=== PATIENT | male | born 1985 | race Caucasian/White ===

== ENCOUNTER 2024-11-10 12:02 | Inpatient (IN) | payer OTHER ==
[~2024-11-10] VITALS: Ht 170.2 cm; Wt 87.9 kg
[2024-11-10 14:50] VITALS: BP 108/72; PULSE 95; RESP 18; TEMP 98.4; O2SAT 100
[2024-11-10 20:00] VITALS: BP 113/81; PULSE 94; RESP 18; TEMP 98.8; O2SAT 96
[2024-11-10] MEDS: ATORVASTATIN CALCIUM 20 MG TABLET PO SCH (21:16)
[2024-11-11] MEDS: ETHYL ALCOHOL 62% ANTISEPTIC NASAL SANITIZER 0.6 ML AMPUL NASAL SCH (00:59)
[2024-11-11 05:08] VITALS: O2SAT 96
[2024-11-11 08:00] VITALS: BP 127/94; PULSE 88; RESP 18; TEMP 97.5; O2SAT 98
[2024-11-11 08:00] LABS: PLATELET COUNT (AUTO) 275 K/uL (150-450); RED BLOOD CELL COUNT(AUTO) 4.76 MIL/uL (4.50-5.90); RED CELL DISTRIBUTION WIDTH 21.5 % (11.5-14.5); WHITE BLOOD COUNT (AUTO) 12.1 K/uL (4.5-11.0)
[2024-11-11 08:16] LABS: ASPARTATE AMINOTRANSFERASE 20 U/L (15-37); CALCIUM, TOTAL 8.7 mg/dL (8.8-10.5); CREATININE 0.41 mg/dL (0.60-1.30); GLOMERULAR FILTR. RATE CALC > 60 mL/min (>60); GLUCOSE,RANDOM 88 mg/dL (70-110); SODIUM SERUM 136 mmol/L (136-145); TOTAL PROTEIN, SERUM 5.9 g/dL (6.4-8.2); UREA NITROGEN, BLOOD 20 mg/dL (7-18)
[2024-11-11] MEDS: POTASSIUM CHLORIDE 20 MEQ ER TABLET PO SCH (08:58)
[2024-11-11] MEDS: ASPIRIN 81 MG CHEWABLE TABLET PO SCH (08:58)
[2024-11-11] MEDS: LANSOPRAZOLE 15 MG SOLUBLE TABLET PO SCH (08:58)
[2024-11-11] MEDS ORDERED: EZETIMIBE 10 MG TABLET PO SCH (09:00)
[2024-11-11] MEDS ORDERED: POTASSIUM CHLORIDE 20 MEQ ER TABLET PO SCH (12:45)
[2024-11-11 20:00] VITALS: BP 112/78; PULSE 99; RESP 18; TEMP 97.7; O2SAT 97
[2024-11-11] MEDS: SODIUM CHLORIDE 1 GM TABLET PO SCH (20:29)
[2024-11-11] MEDS: EZETIMIBE 10 MG TABLET PO SCH (20:32)
[2024-11-12 08:00] VITALS: BP 131/94; PULSE 80; RESP 18; TEMP 97.8; O2SAT 99
[2024-11-12] MEDS: SULFAMETHOX/TRIMETH DS 800-160 MG/TABLET PO SCH (08:29)
[2024-11-12] MEDS: ENOXAPARIN SODIUM 30 MG/0.3 ML PF SYRINGE SQ SCH (10:09)
[2024-11-12] MEDS: ACETAMINOPHEN 325 MG TABLET PO PRN (10:09)
[2024-11-12] MEDS: POTASSIUM CHLORIDE 20 MEQ ER TABLET PO ONE (11:06)
[2024-11-12 20:02] VITALS: BP 110/68; PULSE 98; RESP 18; TEMP 98.2; O2SAT 96
[2024-11-12 22:55] VITALS: O2SAT 96
[2024-11-13 07:17] LABS: PLATELET COUNT (AUTO) 281 K/uL (150-450); RED BLOOD CELL COUNT(AUTO) 4.46 MIL/uL (4.50-5.90); RED CELL DISTRIBUTION WIDTH 20.8 % (11.5-14.5); WHITE BLOOD COUNT (AUTO) 10.6 K/uL (4.5-11.0)
[2024-11-13 07:33] LABS: CALCIUM, TOTAL 9.3 mg/dL (8.8-10.5); CREATININE 0.53 mg/dL (0.60-1.30); GLOMERULAR FILTR. RATE CALC > 60 mL/min (>60); GLUCOSE,RANDOM 85 mg/dL (70-110); SODIUM SERUM 140 mmol/L (136-145); UREA NITROGEN, BLOOD 11 mg/dL (7-18)
[2024-11-13 08:00] VITALS: BP 121/91; PULSE 94; RESP 19; TEMP 97.8; O2SAT 98
[2024-11-13] MEDS: POTASSIUM CHLORIDE 20 MEQ ER TABLET PO ONE (10:59)
[2024-11-13 20:03] VITALS: BP 112/79; PULSE 96; RESP 18; TEMP 98.8; O2SAT 97
[2024-11-13 22:26] VITALS: O2SAT 97
[2024-11-14 08:00] VITALS: BP 124/89; PULSE 81; RESP 19; TEMP 98.4; O2SAT 97
[2024-11-14] MEDS: POTASSIUM CHLORIDE 20 MEQ ER TABLET PO ONE (10:40)
[2024-11-14 17:46] LABS: GLUCOMETER DEV NAME(LOC) 2WR.1D; GLUCOSE,POINT OF CARE 226 MG/DL (70-110)
[2024-11-14 20:05] VITALS: BP 115/78; PULSE 98; RESP 18; TEMP 97.9; O2SAT 96; O2SAT 97
[2024-11-15 07:05] LABS: GLUCOMETER DEV NAME(LOC) 2WR.1D; GLUCOSE,POINT OF CARE 88 MG/DL (70-110)
[2024-11-15 08:00] VITALS: BP 118/93; PULSE 86; RESP 19; TEMP 97.9; O2SAT 97
[2024-11-15 08:41] LABS: CALCIUM, TOTAL 9.2 mg/dL (8.8-10.5); CREATININE 0.54 mg/dL (0.60-1.30); GLOMERULAR FILTR. RATE CALC > 60 mL/min (>60); GLUCOSE,RANDOM 77 mg/dL (70-110); SODIUM SERUM 141 mmol/L (136-145); UREA NITROGEN, BLOOD 14 mg/dL (7-18)
[2024-11-15] MEDS: MULTIVITAMINS WITH MINERALS, THERAPEUTIC TABLET PO SCH (08:42)
[2024-11-15 17:36] LABS: GLUCOMETER DEV NAME(LOC) 2WR.1D; GLUCOSE,POINT OF CARE 129 MG/DL (70-110)
[2024-11-15 20:02] VITALS: BP 123/74; PULSE 82; RESP 18; TEMP 98.2; O2SAT 95
[2024-11-15] MEDS: POTASSIUM CHLORIDE 20 MEQ ER TABLET PO SCH (20:09)
[2024-11-15] MEDS: SODIUM CHLORIDE 1 GM TABLET PO SCH (20:10)
[2024-11-15 21:50] VITALS: O2SAT 95
[2024-11-16] MEDS ORDERED: ATOR20TA PO (03:00)
[2024-11-16] MEDS ORDERED: ASPI-1450 PO (03:00)
[2024-11-16] MEDS ORDERED: EZET10TA57 PO (03:01)
[2024-11-16] MEDS ORDERED: ACET250T31 PO (03:01)
[2024-11-16] MEDS ORDERED: LANS-78 PO ×2 (03:03)
[2024-11-16] MEDS ORDERED: MULT-1303 PO (03:03)
[2024-11-16] MEDS ORDERED: LANS15TA13 PO (03:03)
[2024-11-16] MEDS ORDERED: POTA-206 PO (03:04)
[2024-11-16] MEDS ORDERED: SODI100067 PO (03:04)
[2024-11-16] MEDS ORDERED: SULF-261 PO (03:06)
[2024-11-16 07:41] LABS: GLUCOMETER DEV NAME(LOC) 2WR.1D; GLUCOSE,POINT OF CARE 83 MG/DL (70-110)
[2024-11-16 08:21] LABS: CALCIUM, TOTAL 8.9 mg/dL (8.8-10.5); CREATININE 0.58 mg/dL (0.60-1.30); GLOMERULAR FILTR. RATE CALC > 60 mL/min (>60); GLUCOSE,RANDOM 75 mg/dL (70-110); UREA NITROGEN, BLOOD 14 mg/dL (7-18)
[2024-11-16 08:34] VITALS: BP 125/89; PULSE 89; RESP 19; TEMP 97.4; O2SAT 98
[2024-11-16 08:38] LABS: SODIUM SERUM 139 mmol/L (136-145)
[2024-11-16 11:23] VITALS: O2SAT 98
[2024-11-16 20:00] VITALS: BP 127/94; PULSE 89; RESP 18; TEMP 98.2; O2SAT 98
[2024-11-17 07:10] LABS: GLUCOMETER DEV NAME(LOC) 2WR.1D; GLUCOSE,POINT OF CARE 82 MG/DL (70-110)
[2024-11-17 08:00] VITALS: BP 116/87; PULSE 85; RESP 18; TEMP 97.5; O2SAT 98
[2024-11-17 20:02] VITALS: BP 110/70; PULSE 90; RESP 18; TEMP 97.7; O2SAT 100
[2024-11-17 22:15] VITALS: O2SAT 100
[2024-11-18 08:00] VITALS: BP 117/85; PULSE 86; RESP 18; TEMP 98.4; O2SAT 98
[2024-11-18] MEDS: MELATONIN 5 MG TABLET PO PRN (21:01)
[2024-11-18 23:35] VITALS: BP 111/76; PULSE 95; RESP 17; TEMP 98.2; O2SAT 98
[2024-11-18 23:39] VITALS: O2SAT 98
[2024-11-19 08:00] VITALS: BP 119/88; PULSE 89; RESP 19; TEMP 97.7; O2SAT 97
[2024-11-19 20:00] VITALS: BP 107/76; PULSE 102; TEMP 98.1; O2SAT 96
[2024-11-19] MEDS: ETHYL ALCOHOL 62% ANTISEPTIC NASAL SANITIZER 0.6 ML AMPUL NASAL SCH (21:45)
[2024-11-20 08:00] VITALS: BP 123/85; PULSE 106; RESP 18; TEMP 98.4; O2SAT 95
[2024-11-20 16:37] VITALS: PULSE 92; O2SAT 98
[2024-11-20 20:00] VITALS: BP 123/87; PULSE 94; RESP 20; TEMP 97.7; O2SAT 97
[2024-11-21 07:41] VITALS: BP 113/88; PULSE 87; RESP 18; TEMP 97.7; O2SAT 98
[2024-11-21 10:49] VITALS: O2SAT 98
[2024-11-21 10:51] VITALS: PULSE 89; O2SAT 98
[2024-11-21 20:00] VITALS: BP 115/79; PULSE 96; RESP 18; TEMP 97.7; O2SAT 97
[2024-11-22 07:39] LABS: PLATELET COUNT (AUTO) 302 K/uL (150-450); RED BLOOD CELL COUNT(AUTO) 4.72 MIL/uL (4.50-5.90); RED CELL DISTRIBUTION WIDTH 20.4 % (11.5-14.5); WHITE BLOOD COUNT (AUTO) 12.0 K/uL (4.5-11.0)
[2024-11-22 08:00] VITALS: BP 117/91; PULSE 83; RESP 17; TEMP 98; O2SAT 97
[2024-11-22 08:17] LABS: CALCIUM, TOTAL 9.1 mg/dL (8.8-10.5); CREATININE 0.78 mg/dL (0.60-1.30); GLOMERULAR FILTR. RATE CALC > 60 mL/min (>60); GLUCOSE,RANDOM 77 mg/dL (70-110); SODIUM SERUM 137 mmol/L (136-145); UREA NITROGEN, BLOOD 20 mg/dL (7-18)
[2024-11-22 20:00] VITALS: BP 107/73; PULSE 83; RESP 18; TEMP 97.7; O2SAT 99
[2024-11-23 08:00] VITALS: BP 110/83; PULSE 83; RESP 19; TEMP 98.1; O2SAT 99
[2024-11-23 20:00] VITALS: BP 120/86; PULSE 88; RESP 20; TEMP 97.3; O2SAT 98
[2024-11-23 20:05] VITALS: O2SAT 98
[2024-11-24 08:00] VITALS: BP 122/91; PULSE 87; RESP 18; TEMP 97.5; O2SAT 99
[2024-11-24 20:00] VITALS: BP 108/81; PULSE 95; RESP 18; TEMP 98.1; O2SAT 96
[2024-11-25 08:00] VITALS: BP 120/90; PULSE 84; RESP 18; TEMP 98.2; O2SAT 96
[2024-11-25 20:04] VITALS: BP 124/89; PULSE 98; RESP 19; TEMP 97.7; O2SAT 97; O2SAT 98
[2024-11-26 07:22] LABS: ASPARTATE AMINOTRANSFERASE 37 U/L (15-37); CALCIUM, TOTAL 9.1 mg/dL (8.8-10.5); CREATININE 0.68 mg/dL (0.60-1.30); GLOMERULAR FILTR. RATE CALC > 60 mL/min (>60); GLUCOSE,RANDOM 78 mg/dL (70-110); SODIUM SERUM 138 mmol/L (136-145); TOTAL PROTEIN, SERUM 5.8 g/dL (6.4-8.2); UREA NITROGEN, BLOOD 18 mg/dL (7-18)
[2024-11-26 08:00] VITALS: BP 128/84; PULSE 90; RESP 18; TEMP 98.4; O2SAT 98
[2024-11-26] MEDS: POTASSIUM CHLORIDE 20 MEQ ER TABLET PO ONE (10:12)
[2024-11-26 20:00] VITALS: BP 115/79; PULSE 96; RESP 18; TEMP 98.2; O2SAT 96
[2024-11-27 08:00] VITALS: BP 121/89; PULSE 81; RESP 17; TEMP 97.5; O2SAT 96
[2024-11-27 20:02] VITALS: BP 106/74; PULSE 96; RESP 18; TEMP 98.4; O2SAT 97
[2024-11-27 21:22] VITALS: O2SAT 97
[2024-11-28] MEDS ORDERED: PRED-554 PO (03:41)
[2024-11-28 05:31] LABS: ASPARTATE AMINOTRANSFERASE 29 U/L (15-37); CALCIUM, TOTAL 9.0 mg/dL (8.8-10.5); CREATININE 0.66 mg/dL (0.60-1.30); GLOMERULAR FILTR. RATE CALC > 60 mL/min (>60); GLUCOSE,RANDOM 86 mg/dL (70-110); SODIUM SERUM 140 mmol/L (136-145); TOTAL PROTEIN, SERUM 5.6 g/dL (6.4-8.2); UREA NITROGEN, BLOOD 18 mg/dL (7-18)
[2024-11-28 08:00] VITALS: BP 125/90; PULSE 83; RESP 18; TEMP 98.1; O2SAT 97
[2024-11-28 20:30] VITALS: BP 125/92; PULSE 80; RESP 18; TEMP 98.8; O2SAT 97
[2024-11-28 22:35] VITALS: O2SAT 97
[2024-11-29 08:00] VITALS: BP 117/84; PULSE 87; RESP 18; TEMP 98.4; O2SAT 97
[2024-11-29] MEDS ORDERED: EZET10TA57 PO (11:32)
[2024-11-29] MEDS ORDERED: SODI100067 PO (11:32)
[2024-11-29] MEDS ORDERED: PRED-554 PO (11:32)
[2024-11-29] MEDS ORDERED: SULF-261 PO (11:32)
[2024-11-29] MEDS ORDERED: ATOR20TA PO (11:32)
[2024-11-29] MEDS ORDERED: POTA-206 PO (11:32)
[2024-11-29] MEDS ORDERED: LANS15TA13 PO (11:32)
[2024-11-29] MEDS ORDERED: ASPI-1450 PO (11:32)
[2024-11-29] MEDS ORDERED: ACET250T31 PO (11:32)
[2024-11-29] MEDS ORDERED: MULT-1303 PO (11:32)
[2024-11-29 20:00] VITALS: BP 116/87; PULSE 87; RESP 18; TEMP 98.1; O2SAT 96
[2024-11-30 08:00] VITALS: BP 125/90; PULSE 88; RESP 18; TEMP 97.9; O2SAT 98
== END 2024-11-30 13:08 | disposition home health service (06) | DRG 58 ==
LOC: 2WR 14:46
PROVIDERS: ADMIT Physical Medicine & Rehabilitation; ATTEND Physical Medicine & Rehabilitation
DX: I69.354 Hemiplegia and hemiparesis following cerebral infarction affecting left non-dominant side (principal); G72.0 Drug-induced myopathy; H47.10 Unspecified papilledema; E22.2 Syndrome of inappropriate secretion of antidiuretic hormone; E46 Unspecified protein-calorie malnutrition; K76.0 Fatty (change of) liver, not elsewhere classified; R53.2 Functional quadriplegia; H53.8 Other visual disturbances; E87.6 Hypokalemia; E11.65 Type 2 diabetes mellitus with hyperglycemia; R41.89 Other symptoms and signs involving cognitive functions and awareness; Z74.09 Other reduced mobility; I77.82 Antineutrophilic cytoplasmic antibody [ANCA] vasculitis; D63.8 Anemia in other chronic diseases classified elsewhere; Z68.30 Body mass index [BMI] 30.0-30.9, adult; Z79.899 Other long term (current) drug therapy; T38.0X5D Adverse effect of glucocorticoids and synthetic analogues, subsequent encounter; Y92.89 Other specified places as the place of occurrence of the external cause
CPT/HCPCS: 76700; 80048; 80053; 82962; 84132; 85025; 87081; 92507; 92508; 92523; 93970; 97110; 97112; 97116; 97150; 97163; 97167; 97530; 97535; 99366; J1650